=== PATIENT | female | born 2000 | race Caucasian/White ===

== ENCOUNTER 2019-10-03 06:49 | Emergency (ER) | payer OTHER ==
[~2019-10-03] VITALS: Ht 162.6 cm; Wt 77.1 kg
[2019-10-03 06:54] VITALS: BP 123/77
--- NOTE | 2019-10-03 06:54 | NUR ---
PT TAKEN TO BED 11
--- NOTE | 2019-10-03 07:07 | NUR ---
18 YEAR OLD FEMALE BROUGHT IN BY FAMILY COMPLAINS OF FALLING AND HITING HEAD ONTO ROCK X 30MINS AGO 8/10 PAIN. FAMILY STATES PATIENT WAS DRINKING ALCOHOL. DENIES NAUSEA/VOMITTING. NO VISIBLE BLEEDING ON BACK OF HEAD NOTED. PATIENT EYES PERRL 4MM, AOX3, GCS 15. PATIENT BREATHING EVEN AND UNLABORED, SKIN WARM AND DRY. BED IN LOWEST POSITION, LOCKED, BED RAIL UPX1. FAMILY MEMBER AT BEDSIDE.
--- NOTE | 2019-10-03 07:15 | NUR ---
Pt report given to OSWALDO VIDALES. Transfer of care at this time.
--- NOTE | 2019-10-03 07:49 | NUR ---
Pt taken to CT via rlissy.
--- NOTE | 2019-10-03 08:05 | NUR ---
Pt returned from CT and placed in bed 11.
--- NOTE | 2019-10-03 08:11 | NUR ---
Pt placed in position of comfort. Warm blankets provided. Mother at bedside.
[2019-10-03 08:59] VITALS: BP 102/56
--- NOTE | 2019-10-03 08:59 | NUR ---
Patient discharged with v/s stable. Written and verbal after care instructions given and explained. Patient verbalized understanding. Ambulatory with steady gait. All questions addressed prior to discharge. Advised to follow up with PMD.
== END 2019-10-03 08:59 | disposition home or self-care (01) ==
LOC: MED 06:49
DX: S09.90XA Unspecified injury of head, initial encounter (principal); F10.10 Alcohol abuse, uncomplicated; W01.198A Fall on same level from slipping, tripping and stumbling with subsequent striking against other object, initial encounter; Y92.89 Other specified places as the place of occurrence of the external cause; Y93.41 Activity, dancing; Y99.8 Other external cause status
CPT/HCPCS: 70450; 99284

== ENCOUNTER 2020-05-06 01:42 | Emergency (ER) | payer OTHER ==
[~2020-05-06] VITALS: Ht 162.6 cm; Wt 72.6 kg
--- NOTE | 2020-05-06 01:42 | NUR ---
PT ALEC BLS TO ER BED 06
[2020-05-06 01:48] VITALS: BP 135/79
--- NOTE | 2020-05-06 02:23 | NUR ---
LAB AT BEDSIDE, WAS ABLE TO OBTAIN SPECIMENS, PT COOPERATIVE
[2020-05-06] MEDS ORDERED: LORazepam 0.5 MG TAB PO ONE (02:35)
[2020-05-06 02:44] LABS: EOSINOPHILS # (AUTO) 0.1 K/uL (0-0.4); HEMOGLOBIN 13.9 g/dL (12.0-16.0); NEUTROPHILS # (AUTO) 3.9 K/uL (1.8-7.7); WHITE BLOOD COUNT (AUTO) 6.3 K/uL (4.5-11.0)
--- NOTE | 2020-05-06 02:45 | NUR ---
PT'S MOTHER AT BEDSIDE SPEAKING WITH PATIENT
[2020-05-06 02:53] LABS: BASOPHILS % (AUTO) 0.5 % (0.0-2.0); EOSINOPHILS % (AUTO) 1.3 % (0.0-4.0); HEMATOCRIT 42.1 % (36-48); LYMPHOCYTES # (AUTO) 1.9 K/uL (2.5-16.5); LYMPHOCYTES % (AUTO) 30.2 % (20.5-51.1); MEAN CORPUSCULAR HEMOGLOBIN 31 pg (27-31); MEAN CORPUSCULAR HGB CONC 33 g/dL (33-37); MEAN CORPUSCULAR VOLUME 94.1 fL (80-94); MONOCYTES # (AUTO) 0.4 K/uL (0.8-1.0); MONOCYTES % (AUTO) 5.8 % (1.7-9.3); NEUTROPHILS % (AUTO) 62.2 % (42.2-75.2); PLATELET COUNT (AUTO) 274 K/uL (140-450); RED BLOOD CELL COUNT(AUTO) 4.47 MIL/uL (4.20-5.40); RED CELL DISTRIBUTION WIDTH 13.6 % (11.6-13.7)
[2020-05-06 03:02] LABS: BARBITURATE, URINE NEGATIVE ng/ml (NEG <=200); BENZODIAZEPINE, URINE NEGATIVE ng/mL (NEG <=200); CANNABINOID, URINE NEGATIVE ng/mL (NEG <=50); COCAINE, URINE NEGATIVE ng/mL (NEG <=300); OPIATE, URINE NEGATIVE ng/mL (NEG <=2000); PHENCYCLIDINE SCREEN,URINE NEGATIVE ng/mL (NEG <=25)
[2020-05-06 03:02] LABS: ALBUMIN 3.9 g/dL (3.4-5.0); ANION GAP 16.6 (8-16); ASPARTATE AMINOTRANSFERASE 19 U/L (15-37); CARBON DIOXIDE 23.9 mmol/L (21-32); CHLORIDE 109 mmol/L (98-107); CREATININE 0.7 mg/dL (0.6-1.3); GFR ARICAN-AMERICAN 137 mL/min (>90); GLUCOSE 85 mg/dL (74-106); POTASSIUM 3.5 mmol/L (3.5-5.1); SALICYLATE < 2.8 mg/dL (2.8-20.0); SODIUM SERUM 146 mmol/L (136-145); TOTAL BILIRUBIN 0.3 mg/dL (0.0-1.0); UREA NITROGEN, BLOOD 6 mg/dL (7-18)
[2020-05-06 03:03] LABS: ACETAMINOPHEN < 0.5 ug/ml (10-30)
--- NOTE | 2020-05-06 03:34 | NUR ---
TELEPSYCH INITIATED PER DR. Adolfo CASTANEDA.
--- NOTE | 2020-05-06 04:00 | NUR ---
PSYCHIATRIST SPEAKING WITH PATIENT
--- NOTE | 2020-05-06 04:00 | NUR ---
PT SPEAKING WITH PSYCHIATRIST VIA TELEPSYCH
--- NOTE | 2020-05-06 04:56 | NUR ---
PT'S MOM WANTED UPDATE ON PT'S STATUS. ADVISED WE ARE WAITING TO HEAR FROM TELEPSYCH DOCTOR. MOM WOULD LIKE UPDATE WHEN WE FIND OUT PLAN FOR PT : ALEX [phone]
--- NOTE | 2020-05-06 05:38 | NUR ---
PT IS CLEARED BY TELE PSYCH DOC TO BE DISCHARGED, PT WILL NOT BE PLACED ON A HOLD. MOM, ALEX, CALLED AND SHE WILL BE HERE TO PICK PT UP.
[2020-05-06] MEDS ORDERED: ACETAMINOPHEN 325 MG TAB PO ONE (05:50)
--- NOTE | 2020-05-06 05:52 | NUR ---
PT C/O HEADACHE, NEW ORDER RECEIVED AND CARRIED OUT.
[2020-05-06 05:58] VITALS: BP 121/97
== END 2020-05-06 06:00 | disposition home or self-care (01) ==
LOC: MED 01:42
DX: F10.129 Alcohol abuse with intoxication, unspecified (principal); F43.29 Adjustment disorder with other symptoms; R45.851 Suicidal ideations; Y90.6 Blood alcohol level of 120-199 mg/100 ml
CPT/HCPCS: 36415; 80053; 80305; 81002; 81025; 85025; 99285; G0480; G0482; 99283